=== PATIENT | male | born 1955 | race Caucasian/White ===

== ENCOUNTER 2016-07-28 10:02 | Emergency (ER) | payer OTHER ==
[2016-07-28] MEDS ORDERED: Heparin VIAL(*) 5000 UNITS/ML VIAL (FIVE THOUSAND) ONE (10:24)
[2016-07-28] MEDS ORDERED: Heparin DRIP 25,000 UNITS(*) 0 UNITS/0 ML BAG ONE (10:24)
[2016-07-28 10:30] LABS: Hematocrit 42 % (42-52); Mean Corpuscular HGB Conc 33 g/dl (31-36); Mean Corpuscular Hemoglobin 32 pg (27-31); Mean Corpuscular Volume 95 fL (80-94); Mean Platelet Volume 8 um3 (7.4-10.4); Red Blood Count 4.41 10^6/ul (4.0-5.4); Red Cell Distribution Width 13 % (10.5-15); White Blood Count 15.6 10^3/ul (3.5-10.8)
[2016-07-28] MEDS ORDERED: Heparin 2 UNITS/ML IVPREMIX* 2,000 ML IV ONE ×2 (10:31→10:44)
[2016-07-28] MEDS ORDERED: fentaNYL* 50 MCG/ML 2 ML VIAL (100 MCG VIAL) ONE ×2 (10:40→11:23)
[2016-07-28] MEDS ORDERED: Midazolam* 1 MG/ML 5 ML VIAL (5 MG) ONE (10:40)
[2016-07-28] MEDS ORDERED: Lidocaine 1% INJ* 10 MG/ML 30 ML SDV ONE (10:40)
--- NOTE | 2016-07-28 10:42 | RAD ---
INDICATION: Chest pain. COMPARISON: There are no prior studies available for comparison. TECHNIQUE: A portable view of the chest was obtained. FINDINGS: The heart is within normal limits in size for this portable exam. The lungs are clear. No pleural effusion is seen. IMPRESSION: NO EVIDENCE FOR ACUTE DISEASE.
[2016-07-28 10:46] LABS: Calcium 9.4 mg/dL (8.6-10.3); EGFR African American 62.4 (>60); EGFR Non-African American 48.5 (>60); Globulin 3.5 g/dL (2-4); Potassium 4.4 mmol/L (3.5-5.0); Total Bilirubin 1.2 mg/dL (0.2-1.0); Total Protein 7.5 g/dL (6.4-8.9)
[2016-07-28] MEDS ORDERED: Iodixanol* (CONTRAST) 320 MG/ML 100 ML SDV ONE (10:49)
[2016-07-28] MEDS ORDERED: Norepinephrine 16MCG/ML IVPRE* 4,000 MCG/250 ML BAG IV ONE (10:49)
[2016-07-28 10:50] LABS: Troponin I 13.7 ng/mL (<0.04)
[2016-07-28 10:52] VITALS: BP 132/62
[2016-07-28 10:54] LABS: PCO2 Arterial 21 mmHg (35-45)
[2016-07-28] MEDS ORDERED: Eptifibatide (*) 100 ML ONE (11:27)
[2016-07-28] MEDS ORDERED: Eptifibatide IV (Load dose)(*) 2 MG/ML 10 ml VIAL ONE (11:27)
[2016-07-28] MEDS ORDERED: Heparin DRIP 25,000 UNITS(*) 25,000 UNITS/500 ML BAG IVPB SCH (11:45)
[2016-07-28] MEDS ORDERED: Heparin VIAL(*) 5000 UNITS/ML VIAL (FIVE THOUSAND) IV SCH (12:00)
[2016-07-28] MEDS ORDERED: nitroGLYCERIN DRIP* 250 ML ONE (12:09)
--- NOTE | 2016-07-28 14:18 | ED ---
Ashutosh Colindres Matthew, scribed for Meng De Los Santos MD on 07/28/16 at 1049 . HPI Chest Pain - HPI Summary HPI Summary: A 61 y/o male presents to the ED with chest pain since 09:00 this morning. The pain is across the lower chest and described as dull. Yesterday, the patient was cutting firewood, when he first noticed the dull chest pain that radiated across the lower abdomen. He took Pepcid at that time, which help alleviated the chest pain; however the pain moved into his abdomen. At this time associated symptoms include SOB, lightheadedness, and epigastric abdominal pain. The patient took 600mg of ibuprofen at 06:00 this morning. Per the , the patient was ill last week. He has no Hx of CAD. - History of Current Complaint Time Seen by Provider: 07/28/16 10:10 Hx Obtained From: Patient Onset/Duration: Started Hours Ago, Atraumatic, Still Present Time of Onset: 09:00 Timing: Constant Initial Severity: Moderate Current Severity: Moderate Chest Pain Location: Lower Sternal Chest Pain Radiates: No Character: Dull/Aching Aggravating Factor(s): Exertion Associated Signs and Symptoms: Positive: Chest Pain, Shortness of Breath, Lightheadedness, Other: - epigastric pain - Allergy/Home Medications Allergies/Adverse Reactions: Allergies Allergy/AdvReac Type Severity Reaction Status Date / Time No Known Allergies Allergy Verified 07/28/16 10:32 PMH/Surg Hx/FS Hx/Imm Hx Previously Healthy: Yes Cardiovascular History: Denies: Hx Coronary Artery Disease Infectious Disease History: Denies: Traveled Outside the [place] in Last 30 Days - Family History Known Family History: Positive: Unknown - due to STEMI urgency - Social History Lives: With Family Hx Substance Use: No Substance Use Type: Reports: None Hx Tobacco Use: Yes Smoking Status (MU): Current Every Day Smoker Review of Systems Constitutional: Negative Eyes: Negative ENT: Negative Positive: Chest Pain Positive: Shortness Of Breath Positive: Abdominal Pain - epigastric Genitourinary: Negative Musculoskeletal: Negative Neurological: Other - lightheadedness Psychological: Normal All Other Systems Reviewed And Are Negative: Yes Physical Exam Triage Information Reviewed: Yes Vital Signs On Initial Exam: Initial Vitals Temp Pulse Resp BP Pulse Ox 97.8 F 133 20 132/62 97 07/28/16 10:10 07/28/16 10:10 07/28/16 10:10 07/28/16 10:10 07/28/16 10:10 Vital Signs Reviewed: Yes Appearance: Positive: Well-Appearing, No Pain Distress Skin: Positive: Warm, Skin Color Reflects Adequate Perfusion, Dry Head/Face: Positive: Normal Head/Face Inspection Eyes: Positive: Normal ENT: Positive: Normal ENT inspection Neck: Positive: Supple, Nontender, Other: - No Bruits Respiratory/Lung Sounds: Positive: Clear to Auscultation, Breath Sounds Present Cardiovascular: Positive: Murmur - Loud systolic injection murmur, Tachycardia Abdomen Description: Positive: Soft, Other: - Tenderness over the epigastrium Bowel Sounds: Positive: Present Musculoskeletal: Positive: Normal, Strength/ROM Intact Neurological: Positive: Normal Psychiatric: Positive: Normal, Affect/Mood Appropriate Diagnostics - Vital Signs Vital Signs Temp Pulse Resp BP Pulse Ox 07/28/16 10:10 97.8 F 133 20 132/62 97 - Laboratory Lab Results: Lab Results 07/28/16 07/28/16 Range/Units 10:20 10:20 WBC 15.6 H (3.5-10.8) 10^3/ul RBC 4.41 (4.0-5.4) 10^6/ul Hgb 14.0 (14.0-18.0) g/dl Hct 42 (42-52) % MCV 95 H (80-94) fL MCH 32 H (27-31) pg MCHC 33 (31-36) g/dl RDW 13 (10.5-15) % Plt Count 313 (150-450) 10^3/ul MPV 8 (7.4-10.4) um3 Neut % (Auto) 70.3 (38-83) % Lymph % (Auto) 19.0 L (25-47) % [place] % (Auto) 9.7 H (1-9) % Eos % (Auto) 0.5 (0-6) % Baso % (Auto) 0.5 (0-2) % Absolute Neuts (auto) 11.0 H (1.5-7.7) 10^3/ul Absolute Lymphs (auto) 3.0 (1.0-4.8) 10^3/ul Absolute Monos (auto) 1.5 H (0-0.8) 10^3/ul Absolute Eos (auto) 0.1 (0-0.6) 10^3/ul Absolute Basos (auto) 0.1 (0-0.2) 10^3/ul Absolute Nucleated RBC 0 10^3/ul Nucleated RBC % 0 Blood Type Pending Antibody Screen Pending Result Diagrams: 07/28/16 10:20 07/28/16 10:20 Lab Statement: Any lab studies that have been ordered have been reviewed, and results considered in the medical decision making process. - Radiology CXR Xray Interpretation: No Acute Changes - IMPRESSION: NO EVIDENCE FOR ACUTE DISEASE. Radiology Interpretation Completed By: Radiologist - EKG 10:02 Cardiac Rate: Tachycardia - 136 bpm EKG Rhythm: Sinus Tachycardia EKG Interpretation: ST elevation in leads III, II, and AvF; ST depression laterally; RBBB Chest Pain Course/Dx - Course Course Of Treatment: Mr. Quinn presented with an atypical story but an ECG that clearly showed an inferior STEMI. He also had a loud MANSI. A STEMI Alert was called and he was taken to the labor relations consultant. - Diagnoses Provider Diagnoses: STEMI (ST elevation myocardial infarction) During the Visit The Following Alert/Code Occurred: STEMI - Critical Care Time Critical Care Time: 30-74 min Discharge - Discharge Plan Condition: Stable Disposition: ADMITTED TO [facility] The documentation as recorded by the Ashutosh sullivan Matthew accurately reflects the service I personally performed and the decisions made by , Meng De Los Santos MD.
--- NOTE | 2016-07-28 21:32 | TRS ---
H & P, TRANSFER SUMMARY: DATE OF ADMISSION: 07/28/16 DATE OF TRANSFER: 07/28/16 DISPOSITION: Transfer by ALS ambulance to Dr. Arango, [facility]. DIAGNOSES: 1. Acute inferior wall ST elevation infarct. 2. Ventricular septal defect, acute rupture. TRANSFER MEDICATIONS: 1. IV heparin per protocol. 2. IV Integrilin 2 mcg/min. 3. Levophed 10 mcg/min. 4. Intraaortic balloon pump 1:1. CONDITION ON TRANSFER: Guarded. HISTORY: A 61-year-old male with in retrospect of vague GI/chest discomfort a week ago. Yesterday, he had epigastric discomfort all day long, it may or may not have diminished during the night. This morning, it recurred and he presented in the ER where he was found to be in sinus tachycardia at 136, with a loud L parasternal holosystolic murmur, with the inferior ST segment elevation consistent with a true posterior inferior ST elevation infarct. He underwent emergent catheterization. PAST MEDICAL HISTORY: Noncontributory. PREHOSPITAL MEDICATIONS: None. SOCIAL HISTORY: He is a nonsmoker. He is retired. He is active. FAMILY HISTORY: Negative for premature coronary artery disease. ALLERGIES: None to medications. REVIEW OF SYSTEMS: General: No history of fever or weight loss. No H/O TIA, CVA. GI: No history of peptic ulcer disease or bleeding. Remainder all negative. PHYSICAL EXAMINATION: In the ER, his BP was recorded at 132/62. He was tachypneic. In the labview programmer at arrival, systolic blood pressure was in the 80 to 90s. Heart rate was 133 with occasional ectopy. His lungs revealed rales at the right base, no dullness to percussion. JVP was not visible, carotids were low volume and palpable without bruits. HEENT was unremarkable. Cardiac exam revealed nonpalpable RV or apex, and a harsh grade 3/6 holosystolic murmur at the left parasternal border with some radiation towards the axilla, c/w MR or VSD. I could hear no diastolic murmur or gallop. The abdomen was soft, nontender, aorta no bruit, not palpable, liver not palpable. Femoral pulses 2+, no bruits. Extremities, radial and pedal pulses were palpable, he had no cyanosis, clubbing, or edema. Psych, he is oriented appropriate. LABORATORY DATA: Admission CBC, white count high at 15.6 thousand, hemoglobin 14, hematocrit 42, platelet count 313,000. INR 1.04. Blood gas, pH 7.40, pCO2 21, pO2 83, base deficit -9.7. Chemistry panel, anion gap elevated at 15, sodium 127, potassium 4.4, CO2 18. Creatinine 1.47, BUN 22. Lactate elevated at 4.9, random blood sugar at 189. First troponin 13.7. His SGOT and SGPT were slightly elevated at 103 and 73 respectively with normal alkaline phosphatase. BNP high at 1477. DIAGNOSTIC STUDIES: Chest x-ray by my review showed some mild pulmonary vascular re-distribution. EKG as above. HOSPITAL COURSE: He underwent emergent catheterization via the right femoral approach with a finding of an occluded right coronary artery, the likely culprit , as well as a distal circumflex occlusion of a posterolateral with left-to- left collateral filling, significant stenosis of a large diagonal branch and moderately severe stenosis of the proximal LAD. LV gram was done because of physical exam with a murmur consistent with MR or VSD. 20 cc LV injection showed prompt filling of the RV cavity consistent with a VSD. This was then confirmed with a bedside echo. The RCA was then opened and stented with a 2.5 x 24 mm bare-metal stent with resolution of chest pain. Intra-aortic balloon pump had been placed in the right femoral access point after diagnostic angiography. He was started on Levophed for blood pressure support. RCA inrervention was performed via LCFA access. At the time of transfer, mean aortic pressure is in the 70s on Levophed 10 mcg/min, intraballoon pump 1:1 as well as IV heparin and IV Integrilin after IC bolus. He is pain free and stable. He has been transferred by [facility] to [facility]. CC: Ramila Hicks MD * [id number]/[facility] #: [id number] [facility]RIC CENTERLissett
--- NOTE | 2016-08-07 02:49 | CATH ---
STENT REPORT: DATE OF PROCEDURE: 07/28/16 - EMERGENCY DEPT PROCEDURES: Right femoral artery access, bilateral selective coronary cineangiography, left heart catheterization, left ventriculography, stent placement, RCA 2.5 x 24 bare metal stent RCA, double bolus IC and IV Integrilin. HISTORY: A 61-year-old male presenting with acute inferior ST elevation infarct , a week prior he had a viral type illness. On exam, he had a harsh left parasternal murmur consistent with MR or VSD. He underwent emergent catheterization. PROCEDURE ACCESS: Right femoral artery sheath 6F. MEDICATIONS: 1. Subcu lidocaine. 2. IV Versed. 3. IV Fentanyl. 4. Heparin 4000 units, 2000 units, 1100 units IV per hour. 5. Double bolus IC Integrilin and IV infusion. 6. Levophed boluses. DIAGNOSTIC CATHETER: 6-FL4, 6-FR4, 6F pigtail, guiding catheter RCA, 6-FR4 wire 14 BMW used to deploy a 2.5 x 24 bare-metal stent, mid RCA at the 2.5 x 24 mm bare metal stent 14 atmospheres 30 seconds. HEMODYNAMICS: Initial BP 92/64, LV 63/18-25, no aortic valve gradient on pullback. Levophed was given for hypotension. LV gram was performed before revascularization to differentiate between acute MR and VSD. After angiogram showed rapid filling of the RV, table side echo confirmed a VSD without MR. The RCA was then revascularized using a bare-metal stent. ANGIOGRAPHY: Left Main: The left main is relatively long, has a minimal distal taper without significant stenosis. LAD. The LAD is moderate in size, calcified, has a 30% stenosis before the origin of a large diagonal, which has proximal minor luminal irregularity, the LAD distally ends past the apex, has no significant stenosis. Circumflex. The circumflex is not dominant, is moderate, with a moderate marginal branch, the AV groove continuation is then occluded, consistent with a bifurcated posterolateral which fills by left to left collaterals. There was also transatrial collateral to the RCA. In the [place] view, the LAD diagonal has an ostial 50% to 60% stenosis. RCA. The RCA is dominant, moderate, occluded within a few centimeters of the origin. LV Gram. JOHNSON LV gram shows inferior akinesis, LVEF estimate 40% with an underfilled left ventricle. There is prompt filling of the RV consistent with a VSD. After RCA bare-metal stent placement, distal RCA is severely pruned, improved after IC nitroglycerin and Integrilin. There is no residual stenosis, capillary filling is markedly diminished. Distal RCA consists of a small caliber PDA and 3 small posterolaterals. CONCLUSION: 1. Three-vessel disease with RCA culprit occlusion with inferior ST elevation infarct complicated by VSD. 2. LV systolic dysfunction. 3. Intra-aortic balloon pump was placed at the right femoral puncture site for hemodynamic support during transfer. CC: Dr. Ramila Hicks* [id number]/[facility] #: [id number] MTDD
== END 2016-07-28 10:40 | disposition short-term general hospital (02) ==
LOC: ED 10:02 → ICU 10:30 → UNDOADMIN 10:30
DX: I21.3 ST elevation (STEMI) myocardial infarction of unspecified site (principal); R07.9 Chest pain, unspecified; R06.02 Shortness of breath; R42 Dizziness and giddiness; R10.13 Epigastric pain
CPT/HCPCS: 33967; 36415; 71010; 80053; 82550; 82553; 82803; 83605; 83721; 83874; 83880; 84484; 85025; 85610; 85730; 86850; 86900; 86901; 93005; 93308; 99284; C1725; C1769; C1876; C1887; J1327; J1644; J2250; J3010